=== PATIENT | female | born 1980 | race Caucasian/White ===

== ENCOUNTER 2016-11-04 10:23 | Emergency (ER) | payer OTHER ==
[~2016-11-04] VITALS: Ht 172.7 cm; Wt 72.7 kg
[2016-11-04] MEDS ORDERED: HYDROcodone-APAP 5-325 mg Tablet PO ONE (10:30)
[2016-11-04 10:33] VITALS: BP 114/68; PULSE 90; RESP 15; O2SAT 99
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
[2016-11-04 11:25] LABS: BASOPHILS % (AUTO) 0.4 % (0-3); EOSINOPHILS % (AUTO) 0.5 % (0-5); MONOCYTES % (AUTO) 7.5 % (4-12); Mean Corpuscular Hemoglobin 22.1 pg (27.0-35.0); Mean Corpuscular Volume 72.1 fL (81-100); NEUTROPHILS % (AUTO) 63.3 % (40-74); Platelet Count 384 bil/L (150-400)
[2016-11-04 11:45] LABS: Lipase 31 U/L (13-60); Magnesium 2.3 mg/dL (1.6-2.6)
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
[2016-11-04] MEDS ORDERED: HYDR-4003 PO (13:45)
[2016-11-04 14:01] VITALS: BP 104/60; PULSE 85; RESP 16; O2SAT 100
== END 2016-11-04 14:03 | disposition home or self-care (01) ==
LOC: SED 10:23 → EDBD 10:23 → SED 14:03
DX: S34.101A Unspecified injury to L1 level of lumbar spinal cord, initial encounter (principal); V48.5XXA Car driver injured in noncollision transport accident in traffic accident, initial encounter; Y93.9 Activity, unspecified; Y92.410 Unspecified street and highway as the place of occurrence of the external cause; Y99.8 Other external cause status
CPT/HCPCS: 36415; 72100; 72131; 72170; 80053; 81025; 83690; 83735; 85014; 85018; 85025; 85610; 96372; 99285; G0480; J1885; J2270